=== PATIENT | male | born 1985 | race Caucasian/White ===

== ENCOUNTER 2025-08-02 18:00 | Emergency (ER) | payer SELFPAY ==
[2025-08-02 18:03] VITALS: BP 136/97; PULSE 100; RESP 18; TEMP 37.1; O2SAT 95; BMI 37.0
[2025-08-02 18:45] LABS: PLT CLUMP 1; SCAN SMEAR FLAG 1
[2025-08-02 18:55] LABS: Hemoglobin 13.9 g/dl (14.0-18.0); Imm Gran Abs Auto 0.03 X10*3/uL (0.00-0.03); Imm Gran Pct Auto 0.4 % (0.0-0.4); MANUAL DIFF FLAG SCAN; Mean Corpuscular Volume 81.9 fL (80.0-98.0)
[2025-08-02 18:57] LABS: Hematocrit 40.2 % (42.0-52.0); Lymphocytes Absolute Auto 1.6 X10*3/uL (1.2-4.9); Mean Corpuscular HGB Conc 34.6 g/dl (31.0-36.0); Mean Corpuscular Hemoglobin 28.3 pg (27.0-33.0); NRBC Abs Auto 0.020 X10*3/uL (0.0-0.012); NRBC Pct Auto 0.3 /100WBC (0.0-0.2); Red Blood Count 4.91 X10*6/uL (4.60-5.80)
[2025-08-02 19:03] LABS: Alanine Aminotransferase 49 U/L (0-40); Albumin Level 4.7 g/dL (3.5-5.0); Alkaline Phosphatase 123 U/L (39-117); Anion Gap 15 (12-20); Aspartate Amino Transferase 67 U/L (5-37); Blood Urea Nitrogen 13 mg/dL (9-16); Calcium 9.7 mg/dL (8.4-10.2); Carbon Dioxide 22 mmol/L (22-29); Chloride 105 mmol/L (96-108); Creatinine Clr Calc Pharmacy 166.1; Estimated Glomerular Filt Rate > 60; Potassium 4.2 mmol/L (3.3-5.1); Sodium 138 mmol/L (135-145); Total Protein 8.5 g/dL (6.5-8.0)
[2025-08-02 19:10] LABS: White Blood Count 7.1 X10*3/uL (4.8-10.8)
--- NOTE | 2025-08-02 20:03 | ED.SKABFB ---
HPI - Skin/Abscess/Foreign Bdy General Chief complaint: Skin/Abscess/Foreign Body Stated complaint: face swelling, nose infection Time Seen by Provider: 08/02/25 19:37 Source: patient Mode of arrival: ambulatory Limitations: no limitations History of Present Illness ED Provider: HPI narrative: 40-year-old male presenting with right Kaufman swelling and drainage, with some erythema of the right cheek, he has started taking few pills of Bactrim that he has had from prior infection, initially the area was a pimple and he has been squeezing the pus out. No fevers or chills. Related Data Previous Rx's ?Medication ?Instructions ?Recorded sulfamethoxazole 800 1 tab PO BID 7 days #14 tabs 08/02/25 mg-trimethoprim 160 mg tablet (Bactrim DS) Allergies Allergy/AdvReac Type Severity Reaction Status Date / Time Penicillins Allergy Intermediate Vomiting Verified 08/02/25 18:06 Review of Systems Constitutional: Constitutional: Reports as per [facility] Social History Social History Advance Directives: No Advance Directives Information Provided: No Physical Exam Exam: Exam: General: Appears of stated age ? palpable abscess of right Kaufman, minimal facial swelling, minimal infraorbital swelling, extraocular movements intact, no trismus ? Neck: right submandibular lymph node ? CV: RRR, no obvious murmurs appreciated ? Resp: ?No wheezing rales rhonchi no stridor moving air well ? Abd: ?Bowel sounds are present, no tenderness no rebound no rigidity ? MSK: FROM, strength 5/5 all extremities ? Skin: minimal right cheek erythema ? Neuro: ?Alert and oriented x3, moving upper and lower extremities symmetrically, no obvious facial asymmetry noted, cranial nerves 2-12 intact Vital Signs: Vital Signs: Last Vital Signs Temp 98.8 F 08/02/25 18:03 Pulse 100 08/02/25 18:03 Resp 18 08/02/25 18:03 BP 136/97 H 08/02/25 18:03 Pulse Ox 95 08/02/25 18:03 O2 Del Method Room Air 08/02/25 18:03 BMI result Body Mass Index 37.0 Medical Decision Making Medical Decision Making MDM Narrative: 8:11 PM 08/02/2025 (Dr. Silverio Rondon): ultrasound reveals small collection of pus in the right Kaufman, ultrasound-guided incision and drainage has been discussed with the patient, verbal consent obtained, I plan to perform in for orbital nerve block with extraoral approach, and incised the area with a [address] him on antibiotics, there was no indication follow up blood work or CT imaging at this time Differential Diagnosis Differential Diagnoses: The differential diagnosis associated with the presentation includes ( cellulitis, abscess, infraorbital cellulitis, preseptal cellulitis) Admission/Observation Consideration of admission/observation: Escalation of care including admission/observation considered Lab Data [facility] Lab Attestation statement: I reviewed the patient's lab results. 08/02/25 18:41 08/02/25 18:41 Labs: Lab Results 08/02/25 Range/Units 18:41 WBC 7.1 (4.8-10.8) X10*3/uL RBC 4.91 (4.60-5.80) X10*6/uL Hgb 13.9 L (14.0-18.0) g/dl Hct 40.2 L (42.0-52.0) % MCV 81.9 (80.0-98.0) fL MCH 28.3 (27.0-33.0) pg MCHC 34.6 (31.0-36.0) g/dl RDW 13.2 (11.0-16.0) % Immature Gran % (Auto) 0.4 (0.0-0.4) % Neut % (Auto) 66.8 (45-73) % Lymph % (Auto) 22.7 (20-40) % [place] % (Auto) 7.0 (2-11) % Eos % (Auto) 2.1 (0-4) % Baso % (Auto) 1.0 (0-2) % Lymph # (Auto) 1.6 (1.2-4.9) X10*3/uL [place] # (Auto) 0.5 (0.1-1.2) X10*3/uL Eos # (Auto) 0.2 (0.0-0.4) X10*3/uL Baso # (Auto) 0.1 (0.0-0.2) X10*3/uL Abs Immat Gran (auto) 0.03 (0.00-0.03) X10*3/uL Absolute Neuts (auto) 4.8 (2.0-8.3) x10*3/uL Absolute Nucleated RBC 0.020 H (0.0-0.012) X10*3/uL Nucleated RBC % (auto) 0.3 H (0.0-0.2) /100WBC Sodium 138 (135-145) mmol/L Potassium 4.2 (3.3-5.1) mmol/L Chloride 105 (96-108) mmol/L Carbon Dioxide 22 (22-29) mmol/L Anion Gap 15 (12-20) BUN 13 (9-16) mg/dL Creatinine 0.75 (0.5-1.4) mg/dL Estim Creat Clear Calc 166.1 Estimated GFR > 60 Random Glucose 137 H (60-115) mg/dL Calcium 9.7 (8.4-10.2) mg/dL Total Bilirubin 0.5 (0.0-1.0) mg/dL AST 67 H (5-37) U/L ALT 49 H (0-40) U/L Alkaline Phosphatase 123 H (39-117) U/L Total Protein 8.5 H (6.5-8.0) g/dL Albumin 4.7 (3.5-5.0) g/dL Tests considered The following testing was considered but not selected: CT face Prescription Management I considered prescription management with: Antibiotic Procedures Abscess I/D Site: face (right nare) Side (if applicable): right Local Anesthetic: lidocaine 1% Amount of anesthesia used (mL): 3 Technique: incised with blade and ultrasound guided Amount of fluid expressed (mL): 0.5 Sent for culture/gram staining?: No Irrigation: Yes Packing used?: none Nerve Block Nerve Block 1: Time out performed: Yes Local Anesthetic: lidocaine 1% Amount of anesthesia used (mL): 3 Side: right Nerve Blocks: other (infraorbital) Intraoral Nerve Block: infraorbital Procedure Successful: Yes Patient Tolerated Procedure: well Complications: none Discharge Plan Discharge Clinical Impression: Abscess of skin or subcutaneous tissue Instructions: Abscess (ED) Additional Instructions: evaluated with right Kaufman abscess, this was a small abscess or proximally 0.4 cm x 0.4 cm, infraorbital block performed and the area was incised with expression of pus, continue with warm compresses, generally keep that area of the face clean, wash with soap and water, and place small amount of bacitracin on the inside of the right Kaufman with a Q-tip and continue Bactrim starting tomorrow, another dose given in the ER and you took another dose earlier today so that is twice a day for the next 7 days, facial swelling should continue to resolve, I did inject about 3 mL of lidocaine into your cheek so you will have some more swelling but that will go down and I would give antibiotics 48-72 hours to fully start working but I think by draining the abscess we addressed the underlying issue but if anything is else is getting worse come back to ER Prescriptions: New sulfamethoxazole-trimethoprim [Bactrim DS] 800-160 mg tablet 1 tab PO BID 7 Days Qty: 14 0RF Stand Alone Forms: Work/School Release Print Language: Trinid[place]
[2025-08-02] MEDS: Lidocaine HCl 1 % 20 ML VIAL 10 ML INFILTRATI (21:03)
[2025-08-02] MEDS: Sulfamethox/Trimeth 800/160 TABLET 1 TAB PO (21:04)
[2025-08-02 21:06] VITALS: BP 136/97; PULSE 100; RESP 18; TEMP 37.1; O2SAT 95
[2025-08-02 21:10] VITALS: BP 139/96; PULSE 97; RESP 16; TEMP 36.8; O2SAT 97
== END 2025-08-02 21:13 | disposition home or self-care (01) ==
PROVIDERS: Emergency Provider Emergency Medicine
DX: J34.0 Abscess, furuncle and carbuncle of nose (principal); J34.89 Other specified disorders of nose and nasal sinuses
CPT/HCPCS: 30000; 36415; 64400; 80053; 85025; 99283; 99284; J2003